=== PATIENT | female | born 1940 | race Caucasian/White ===

== ENCOUNTER 2019-09-12 23:14 | Emergency (ER) | payer MEDICARE ==
[~2019-09-12] VITALS: Ht 157.5 cm; Wt 58.6 kg
[2019-09-12 23:29] VITALS: Ht 157.5 cm; Wt 58.6 kg
[2019-09-12 23:47] LABS: HEMATOCRIT 34.3 % (36.0-48.0); HEMOGLOBIN 11.5 g/dL (12-16); MCH 28.8 pg (26.0-34.0); MCHC 33.5 g/dL (31.0-37.0); MEAN PLATELET VOLUME 9.2 fL (7.4-10.4); NEUTROPHILS 31.9 % (40-80); PLATELET COUNT 321 10x3/uL (130-400); RBC 3.99 10x6/uL (4.00-5.40); RDW 14.4 % (11.5-14.5); WBC 4.2 10x3/uL (4.8-10.8)
[2019-09-12 23:57] LABS: APTT 33.4 SECONDS (22.8-39.4); INR 0.91 (0.85-1.17); PROTIME 11.7 SECONDS (11.6-15.0)
[2019-09-13 00:03] LABS: ANION GAP 12.2 mmol/L (8-16); CALCIUM 9.2 mg/dL (8.5-10.1); CARBON DIOXIDE 26.1 mmol/L (21.0-32.0); CREATININE - SERUM 0.9 mg/dL (0.6-1.3); POTASSIUM - SERUM 4.3 mmol/L (3.5-5.1)
[2019-09-13 00:08] LABS: ALBUMIN 3.6 g/dL (3.4-5.0); BILIRUBIN - TOTAL 0.2 mg/dL (0.2-1.3); PROTEIN - SERUM 7.5 g/dL (6.4-8.2)
[2019-09-13] MEDS ORDERED: CELEBREX200 MG PO (00:56)
[2019-09-13] MEDS ORDERED: OMEPRAZOLE20 M1 PO (00:57)
[2019-09-13] MEDS ORDERED: BAYER CHEWABLE81 MG PO (00:58)
[2019-09-13] MEDS ORDERED: ESTRACE2 MG PO (00:58)
[2019-09-13] MEDS ORDERED: GARLIC (00:59)
[2019-09-13] MEDS ORDERED: VITAMIN D31000 UNIT PO (00:59)
[2019-09-13] MEDS ORDERED: GLIMEPIRIDE1 MG PO (00:59)
[2019-09-13] MEDS ORDERED: STOOL SOFTENER100 M1 PO (00:59)
[2019-09-13 04:34] VITALS: BP 166/91
== END 2019-09-13 04:34 | disposition other institution (70) ==
LOC: D.ER 23:14
PROVIDERS: Emergency Medicine
DX: K92.2 Gastrointestinal hemorrhage, unspecified (principal)